=== PATIENT | male | born 1955 ===

== ENCOUNTER 2016-11-01 10:12 | Day surgery (SDC) | payer MEDICARE ==
[2016-10-29 13:26] VITALS: BMI 25.0
[2016-11-01 11:05] LABS: BASO % 0.7 % (0.0-2.0); EOS # 0.1 K/uL (0.0-0.7); EOS % 2.2 % (0.0-4.0); HEMOGLOBIN 13.4 g/dL (12.0-18.0); LYMPH # 1.2 K/uL (1.0-4.3); MEAN CELL VOLUME 96.6 fl (80.0-94.0); MEAN CORPUSCULAR HEMOGLOBIN 33.7 pg (27.0-31.0); MEAN CORPUSCULAR HGB CONC 34.8 g/dL (33.0-37.0); MEAN PLATELET VOLUME 8.5 fl (7.2-11.7); MONO # 0.4 K/uL (0.0-0.8); MONO % 6.4 % (0.0-10.0); NEUT # 4.3 K/uL (1.8-7.0); NEUT % 70.7 % (50.0-75.0); RED CELL DISTRIBUTION WIDTH 13.3 % (11.5-14.5); WHITE BLOOD COUNT 6.1 K/uL (4.8-10.8)
[2016-11-01] MEDS ORDERED: cefTRIAXone (Rocephin) 1 gm Inj ONE (11:38)
[2016-11-01] MEDS ORDERED: Chlorhexidine Gluconate 2OZ GEL TP ONE (11:38)
[2016-11-01] MEDS ORDERED: Lidocaine 2% MPF (5 ml) Inj ONE (12:41)
[2016-11-01] MEDS ORDERED: Midazolam 2 MG/2 ML VIAL ONE (12:41)
[2016-11-01] MEDS ORDERED: Propofol 10 mg/ml Inj (20 ML) ONE (12:41)
[2016-11-01] MEDS ORDERED: Lactated Ringer's 1,000 ML IV ONE ×2 (12:43→13:30)
[2016-11-01] MEDS ORDERED: Liquid Adhesive TOP ONE ×2 (13:15→13:21)
[2016-11-01] MEDS ORDERED: Lactated Ringer's 1,000 ML IV SCH (14:00)
[2016-11-01 14:57] VITALS: RESP 18
[2016-11-01 17:37] VITALS: BP 130/80; PULSE 73; TEMP 97.8; O2SAT 99
--- NOTE | 2016-11-02 06:01 | ENDO ---
PROCEDURE DATE: 11/01/2016 PREOPERATIVE DIAGNOSIS: Post left lithotripsy. POSTOPERATIVE DIAGNOSIS: Residual multiple ureteral calculi. PROCEDURE PERFORMED: Cystoscopy, removal of J stent, ureteroscopy, multiple stones basketed from ureter and re-insertion of a 6-Serbian multi-length double J stent. DESCRIPTION OF PROCEDURE: Under general anesthesia, the patient placed on the operating table in dorsal lithotomy position. ------ prepped and draped in a sterile manner. Using a cystoscope, I entered into bladder, I removed the existing double J stent. I then inserted sensor wire as safety and then under direct vision with ureteroscope, began to evaluate the entire ureter. There were multiple stones, 3-4 good size fragments were there. I used a double Helical basket to engage and then and removed them individually. By the end of removal of the fourth one, in the ureter was seen some evidence of bleeding, so I decided to leave a 6-Serbian multi-length double J stent and under fluoroscopy was placed into good position. The patient was then taken from the operating room in good condition. Idris Reece MD
--- NOTE | 2016-11-02 10:29 | CARD ---
APPROVED REPORT EKG Measurement Heart [id number] <Conclusion> Normal sinus rhythm Normal ECG
== END 2016-11-01 16:30 | disposition home or self-care (01) ==
LOC: H.OPSURG 10:12
PROVIDERS: ATTEND Urology
DX: N23 Unspecified renal colic (principal); E11.9 Type 2 diabetes mellitus without complications; E78.5 Hyperlipidemia, unspecified
CPT/HCPCS: 36415; 52005; 82355; 82948; 85025; 88300; 88304; 93005; C1769; C2617; J0690; J2250; J2704; J3010; J7120